=== PATIENT | female | born 1935 | race Caucasian/White ===

== ENCOUNTER 2019-08-28 07:27 | Outpatient (CLI) | payer OTHER | END 2019-08-28 07:37 | disposition home or self-care (01) | LOC: TOM 07:27 | PROVIDERS: ATTEND Internal Medicine | DX: K56.50 Intestinal adhesions [bands], unspecified as to partial versus complete obstruction (principal); K56.690 Other partial intestinal obstruction; K56.609 Unspecified intestinal obstruction, unspecified as to partial versus complete obstruction ==